=== PATIENT | male | born 1930 | race Caucasian/White ===

== ENCOUNTER → 2017-02-02 | Outpatient (REF) | payer MEDICARE, OTHER | LOC: M LAB REF 16:42 | PROVIDERS: ATTEND Nurse Practitioner Family | DX: D72.829 Elevated white blood cell count, unspecified (principal) ==

== ENCOUNTER → 2017-05-05 | Outpatient (REF) | payer MEDICARE, OTHER ==
[~2017-05-05] MED LIST: ASPI81TA85 PO; FLOM5CAP PO; GLIM4TAB PO; INVO100T PO; JANU100T PO; LISI2.5T3 PO; PRAV40TA2 PO; VITA100T PO
== END ==
LOC: M LAB REF 13:36
PROVIDERS: ATTEND Internal Medicine Medical Oncology
DX: D72.1 Eosinophilia (principal)

== ENCOUNTER 2017-07-15 06:40 | Day surgery (SDC) | payer MEDICARE, OTHER ==
[~2017-07-15] VITALS: Ht 172.7 cm; Wt 95.3 kg
[2017-07-15] MEDS ORDERED: NS 1,000 ML IV ONE (06:45)
[2017-07-15] MEDS ORDERED: PROPOFOL 200 MG/20 ML VIAL As Ordered ONE (06:54)
[2017-07-15] MEDS ORDERED: LIDOCAINE 2% INJ 100 MG/5 ML SDV (FOR ANES.) As Ordered ONE (06:54)
--- NOTE | 2017-07-15 07:48 | ROOR ---
Patient Name: Alex Norris Procedure Date: 07/15/2017 7:28 AM Date of : 1930 Age: 86 Room: [facility] Gender: Male Note Status: Finalized Procedure: Upper GI endoscopy Indications: Surveillance procedure, known 1 cm gastric carcinoid. annual surveillance Providers: Chadwick HERNDON MD Referring MD: VILLA FORD MD Requesting Provider: Medicines: Monitored Anesthesia Care Complications: No immediate complications. Procedure: Pre-Anesthesia Assessment: - The heart rate, respiratory rate, oxygen saturations, blood pressure, adequacy of pulmonary ventilation, and response to care were monitored throughout the procedure. The Endoscope was introduced through the mouth, and advanced to the second part of duodenum. The upper GI endoscopy was accomplished without difficulty. The patient tolerated the procedure well. Findings: A small, submucosal mass with no bleeding and no stigmata of recent bleeding was found on the anterior wall of the gastric body. (review of previous photos of this lesion, shows this to have not changed in size or shape) The exam was otherwise without abnormality. 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 - This remains visually unchanged from previous exams. - The examination was otherwise normal. - No specimens collected. Recommendation: - Observe patient's clinical course. - Repeat upper endoscopy in 1 year for surveillance. Chadwick Herndon MD Chadwick HERNDON MD 07/15/2017 7:47:59 AM This report has been signed electronically. Number of Addenda: 0 Note Initiated On: 07/15/2017 7:28 AM Estimated Blood Loss: Estimated blood loss: none.
[2017-07-15 08:05] VITALS: BP 124/67
== END 2017-07-15 08:13 | disposition home or self-care (01) ==
LOC: M OPP 06:40
PROVIDERS: ATTEND Internal Medicine Gastroenterology
DX: Z09 Encounter for follow-up examination after completed treatment for conditions other than malignant neoplasm (principal); Z86.012 Personal history of benign carcinoid tumor; D13.1 Benign neoplasm of stomach; E78.5 Hyperlipidemia, unspecified; E11.9 Type 2 diabetes mellitus without complications; M19.90 Unspecified osteoarthritis, unspecified site; N40.1 Benign prostatic hyperplasia with lower urinary tract symptoms; Z79.82 Long term (current) use of aspirin; Z79.899 Other long term (current) drug therapy

== ENCOUNTER → 2018-01-17 | Outpatient (REF) | payer MEDICARE, OTHER | LOC: M LAB REF 10:09 | DX: D72.829 Elevated white blood cell count, unspecified (principal); D72.1 Eosinophilia; D47.3 Essential (hemorrhagic) thrombocythemia | CPT/HCPCS: 81402 ==

== ENCOUNTER → 2018-07-13 | Outpatient (REF) | payer MEDICARE, OTHER ==
[2018-07-13 11:20] LABS: ALBUMIN 3.7 GM/DL (3.2-5.2); ALBUMIN/GLOBULIN RATIO 1.06 (1.00-1.93); ALKALINE PHOSPHATASE 156 U/L (45-117); ALT/SGPT 29 U/L (12-78); ANION GAP 6 MEQ/L (8-16); AST/SGOT 18 U/L (7-37); BILIRUBIN,TOTAL 0.7 MG/DL (0.2-1.0); BLOOD UREA NITROGEN 20 MG/DL (7-18); CALCIUM LEVEL 8.7 MG/DL (8.8-10.2); CARBON DIOXIDE LEVEL 29 MEQ/L (21-32); CHLORIDE LEVEL 105 MEQ/L (98-107); CHOLESTEROL LEVEL 122 MG/DL (<200); CHOLESTEROL RISK RATIO 2.975 (<5); CPK CREATINE PHOSPHOKINASE 85 U/L (39-308); CREATININE FOR GFR 1.46 MG/DL (0.70-1.30); FREE T4 0.89 NG/DL (0.76-1.46); GLOMERULAR FILTRATION RATE 48.7 (>35); GLUCOSE, FASTING 124 MG/DL (70-100); HDL CHOLESTEROL 41 MG/DL (>40); LDL CHOLESTEROL 60 MG/DL (<100); NON-HDL-C 81 MG/DL; POTASSIUM SERUM 4.7 MEQ/L (3.5-5.1); SODIUM LEVEL 140 MEQ/L (136-145); TOTAL PROTEIN 7.2 GM/DL (6.4-8.2); TRIGLYCERIDES LEVEL 107 MG/DL (<150)
[2018-07-13 11:25] LABS: MALB URINE SIEMENS 48.3 MG/L
[2018-07-13 11:26] LABS: MAU/CREAT RATIO 40.6 MCG/MG (0.0-30.0)
[2018-07-13 11:44] LABS: ESTIMATED AVERAGE GLUCOSE 154 MG/DL (60-110)
== END ==
LOC: M LAB REF 09:27
DX: E11.9 Type 2 diabetes mellitus without complications (principal); E78.5 Hyperlipidemia, unspecified
CPT/HCPCS: 82550

== ENCOUNTER → 2018-07-27 | Outpatient (REF) | payer MEDICARE, OTHER ==
[2018-07-27 18:38] LABS: VITAMIN B12 LEVEL > 2000 PG/ML (247-911)
== END ==
LOC: M LABNEURO 13:56
DX: E53.8 Deficiency of other specified B group vitamins (principal)
CPT/HCPCS: 82607

== ENCOUNTER 2019-01-23 14:32 | Emergency (ER) | payer MEDICARE, OTHER ==
[~2019-01-23] VITALS: Ht 170.2 cm; Wt 96.4 kg
[~2019-01-23 14:32] MED LIST changes: +CYAN100T5 PO; +FLOM0.4C39 PO; -FLOM5CAP PO; +LISI-1046 PO; -LISI2.5T3 PO; -VITA100T PO
--- NOTE | 2019-01-23 15:17 | ECGEPIP ---
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
--- NOTE | 2019-01-23 15:27 | REP ---
Chest one-view HISTORY: Chest pain Comparison: 05/19/2014 The lungs are clear. The heart is normal in size. The pulmonary vasculature is normal in appearance. Impression: No acute disease. Electronically Signed by Jorge Guzman MD 01/23/2019 03:17 P
[2019-01-23 16:00] VITALS: BP 116/78
[2019-01-24] MEDS ORDERED: DONE10TA90 PO (14:41)
[2019-01-24] MEDS ORDERED: MEMA1TAB2 PO (14:41)
[2019-02-01] MEDS ORDERED: CVS5000S2 PO (13:01)
== END 2019-01-23 16:05 | disposition home or self-care (01) ==
LOC: M ED 14:32
DX: I49.1 Atrial premature depolarization (principal); E11.9 Type 2 diabetes mellitus without complications; E78.5 Hyperlipidemia, unspecified; N18.9 Chronic kidney disease, unspecified; R41.3 Other amnesia; Z79.899 Other long term (current) drug therapy; Z79.82 Long term (current) use of aspirin; Z79.84 Long term (current) use of oral hypoglycemic drugs

== ENCOUNTER → 2019-01-30 | Outpatient (CLI) | payer MEDICARE, OTHER ==
[~2019-01-30] MED LIST changes: +CVS5000S2 PO; +DONE10TA90 PO; +MEMA1TAB2 PO
--- NOTE | 2019-01-30 12:37 | REP ---
RENAL AND BLADDER ULTRASOUND: Real-time sonographic evaluation of the kidneys is performed. The kidneys are normal in size and echotexture, right kidney measuring 10.0 x 4.3 x 4.4 cm and the left kidney 11.8 x 4.4 x 5.0 cm. There is no hydronephrosis bilaterally. A cyst in the mid left kidney measures 1.3 cm in diameter. Parapelvic cyst or dilated joao in the left upper pole measures 1.1 cm in diameter. No other definite renal abnormality is seen. Urinary bladder is mildly distended with no definite mass or calculus. IMPRESSION: No hydronephrosis. Small cystic structure seen in each kidney as discussed above. Electronically Signed by Francisco Crook MD 01/31/2019 03:01 P
== END ==
LOC: M RAD 10:21
PROVIDERS: ATTEND Internal Medicine Nephrology
DX: N28.1 Cyst of kidney, acquired (principal); N18.3 Chronic kidney disease, stage 3 (moderate); E11.22 Type 2 diabetes mellitus with diabetic chronic kidney disease; D72.829 Elevated white blood cell count, unspecified

== ENCOUNTER 2019-02-07 09:04 | Day surgery (SDC) | payer MEDICARE, OTHER ==
[~2019-02-07] VITALS: Ht 170.2 cm; Wt 95.7 kg
[2019-02-07] MEDS: NS 1,000 ML IV ONE (08:00)
[2019-02-07] MEDS ORDERED: PROPOFOL 200 MG/20 ML VIAL As Ordered ONE ×2 (09:13→10:28)
[2019-02-07] MEDS ORDERED: LIDOCAINE 2% INJ 100 MG/5 ML SDV (FOR ANES.) As Ordered ONE ×2 (09:13→10:28)
--- NOTE | 2019-02-07 10:36 | ROOR ---
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 Procedure: Pre-Anesthesia Assessment: - The heart rate, respiratory rate, oxygen saturations, blood pressure, adequacy of pulmonary ventilation, and response to care were monitored throughout the procedure. The Endoscope was introduced through the mouth, and advanced to the second part of duodenum. The upper GI endoscopy was accomplished without difficulty. The patient tolerated the procedure well. Findings: The examined esophagus was normal. A single 10 mm submucosal papule (nodule) was found on the anterior wall of the gastric body. Biopsies were taken with a cold forceps for histology. To prevent bleeding after the biopsy, four hemostatic clips were successfully placed. There was no bleeding at the end of the procedure. The examined duodenum was normal. Impression: - Normal esophagus. - A single submucosal white/pale nodule found in the stomach surrounded by a faint tattoo. This is known to be a small carcinoid tumor and has visually not changed from previous endoscopic surveillance. Biopsied. Clips were placed. - Normal examined duodenum. Recommendation: - Blood Work: Check Chromogranin level. (lab work will be mailed to you) - Await pathology results. - Repeat upper endoscopy in 1 year for surveillance based on pathology results. Chadwick Herndon MD Chadwick HERNDON MD 02/07/2019 10:35:53 AM Electronically signed by Chadwick HERNDON MD Number of Addenda: 0 Note Initiated On: 02/07/2019 10:07 AM Estimated Blood Loss: Estimated blood loss: none.
[2019-02-07 10:58] VITALS: BP 115/67
== END 2019-02-07 11:41 | disposition home or self-care (01) ==
LOC: M OPP 09:04
PROVIDERS: ATTEND Internal Medicine Gastroenterology
DX: C7A.092 Malignant carcinoid tumor of the stomach (principal)

== ENCOUNTER → 2020-05-25 | Outpatient (CLI) | payer MEDICARE, OTHER ==
[~2020-05-25] MED LIST changes: -ASPI81TA85 PO; +ASPI81TA86 PO; +ATOR40TA75 PO; +CYAN100T4 PO; -CYAN100T5 PO; -GLIM4TAB PO; +GLIM4TAB5 PO; -LISI-1046 PO; +LISI2.5T2 PO; +MEMA10TA19 PO; -MEMA1TAB2 PO
== END ==
LOC: M LABSMTC 08:40
PROVIDERS: ATTEND Anesthesiology
DX: Z01.812 Encounter for preprocedural laboratory examination (principal); Z20.828 Contact with and (suspected) exposure to other viral communicable diseases
CPT/HCPCS: C9803; U0003

== ENCOUNTER 2020-05-30 11:24 | Day surgery (SDC) | payer MEDICARE, OTHER ==
[~2020-05-30] VITALS: Ht 170.2 cm; Wt 88.8 kg
[~2020-05-30 11:24] MED LIST changes: +LIDOCAINE 2% 100MG/5ML SDV (FOR ANES.) As Ordered ONE; +NS 1,000 ML IV ONE; +propofoL 200 MG/20 ML VIAL As Ordered ONE
[2020-05-30] MEDS ORDERED: fentaNYL 100 MCG/2 ML INJECTION (J3010) As Ordered ONE (12:00)
[2020-05-30 13:50] VITALS: BP 117/62
--- NOTE | 2020-06-04 11:38 | ROOR ---
Patient Name: Alex Norris Procedure Date: 05/30/2020 1:17 PM Date of : 1930 Age: 89 Room: [facility] Gender: Male Note Status: Finalized Procedure: Upper GI endoscopy Indications: Surveillance procedure, Known 1 cm gastric carcinoid. Annual follow up exam Providers: Chadwick HERNDON MD Referring MD: VILLA FORD MD Requesting Provider: Medicines: Monitored Anesthesia Care Complications: No immediate complications. Procedure: Pre-Anesthesia Assessment: - The heart rate, respiratory rate, oxygen saturations, blood pressure, adequacy of pulmonary ventilation, and response to care were monitored throughout the procedure. The Endoscope was introduced through the mouth, and advanced to the second part of duodenum. The upper GI endoscopy was accomplished without difficulty. The patient tolerated the procedure well. Findings: The examined esophagus was normal. A single 10 mm submucosal papule (nodule) was found on the anterior wall of the stomach. The exam of the stomach was otherwise normal. The examined duodenum was normal. Impression: - Normal esophagus. - A single 10 mm pale submucosal papule (nodule), known carcinoid, was found in the stomach. This is surrounded by a tattoo, endoclip still in place. review of previous images shows this to be unchanged. - Normal examined duodenum. - No specimens collected. Recommendation: - Observe patient's clinical course. - I anticipate no further need for intervention. - As this small carcinoid has not changed since initial discovery in 2007, Pt has at this point declined any further surveillance. - Return to my office PRN. Chadwick Herndon MD Chadwick HERNDON MD 05/30/2020 1:35:21 PM Electronically signed by Chadwick HERNDON MD Number of Addenda: 0 Note Initiated On: 05/30/2020 1:17 PM Estimated Blood Loss: Estimated blood loss: none.
== END 2020-05-30 14:03 | disposition home or self-care (01) ==
LOC: M OPP 11:24
PROVIDERS: ATTEND Internal Medicine Gastroenterology
DX: K31.89 Other diseases of stomach and duodenum (principal); E11.9 Type 2 diabetes mellitus without complications; Z79.82 Long term (current) use of aspirin; Z79.84 Long term (current) use of oral hypoglycemic drugs; Z79.899 Other long term (current) drug therapy
CPT/HCPCS: 43235; J3010